=== PATIENT | female | born 1960 | race Caucasian/White ===

== ENCOUNTER → 2019-02-26 11:29 | Outpatient (CLI) | payer MEDICARE, SELFPAY ==
[2019-02-26 12:23] LABS: Hematocrit 40.1 % (36-46); Hemoglobin 13.8 g/dL (12.0-16.0); Mean Corpuscular HGB Conc 34.4 % (30-36); Mean Corpuscular Hemoglobin 30.4 PG (26-34); Mean Corpuscular Volume 88.3 fL (80-100); Platelet Count 276 X10^3/uL (150-400); Red Blood Cell Count 4.54 X10^6/uL (4.0-5.2); Red Cell Distribution Width 14.7 % (11.6-14.8); White Blood Cell Count 8.3 X10^3/uL (4.5-11.0)
[2019-02-26 13:41] LABS: BUN Creatinine Ratio 36.7 (6-22); Blood Urea Nitrogen 22 mg/dL (7-17); Calcium 10.5 mg/dL (8.4-10.2); Carbon Dioxide 31 mmol/L (22-32); Chloride 101 mmol/L (98-107); Estimated Glomerular Filt Rate > 60.0 mL/min (>60); Glucose 172 mg/dL (70-100); HEMOLYSIS < 15 (0-50); Sodium 140 mmol/L (137-145)
== END ==
PROVIDERS: PCP Family Medicine; Visit Provider Orthopaedic Surgery
DX: Z01.818 Encounter for other preprocedural examination (principal)
CPT/HCPCS: 36415; 80048; 85027; 93005; 93010

== ENCOUNTER 2019-03-15 08:46 | Day surgery (SDC) | payer MEDICARE, MEDICAID, SELFPAY ==
[2019-03-14 07:50] VITALS: BMI 31.0
[2019-03-15] VITALS (9 sets, daily range): BP systolic 149–176; BP diastolic 81–98; PULSE 63–91; RESP 15–26; TEMP 36–36.6; O2SAT 91–95; BMI 36.4
[2019-03-15] MEDS: LACTATED RINGERS 1,000 ML 42 ML IV (09:29)
[2019-03-15] MEDS: MIDAZOLAM 2 MG/2 ML VIAL IV (11:32)
[2019-03-15] MEDS: fentaNYL 100 MCG/2 ML INJ 50 MCG IV (11:32)
--- NOTE | 2019-03-15 11:34 | PM.PREOP ---
Pre-operative Note Interval Note History & Physical reviewed/Exam performed by Physician: Yes Changes to H&P: No
--- NOTE | 2019-03-15 11:34 | PM.OP.1 ---
Operative Date/Time/Diagnoses Date of procedure: 03/15/19 Time of procedure: 11:58 Pre-op diagnosis: left shoulder impingement, severe left shoulder AC OA Post-op diagnosis: same Procedure & Clinicians Procedure: left shoulder OSCAR, left shoulder open distal clavicle excision Same procedure as scheduled: Yes Surgeon: Luciana Fernandez Certified Physician Assistant: Crystal Balderas Anesthesia Type: General and Peripheral nerve block Operative Notes Closure Type: primary Specimen(s): none sent Estimated Blood Loss (mL): 50 Blood products transfused: none Procedure in detail: Patient was brought to the operating room and underwent induction of a general anesthesia. She had a preoperative left shoulder suprascapular nerve block placed for postoperative pain control. She was carefully positioned in the lateral decubitus position and the left upper extremity was prepped and draped in standard sterile fashion. Time-out was performed and antibiotics were given. The bony anatomy was meticulously defined and a posterior portal was placed. Diagnostic arthroscopy of the intra-articular surface showed partial thickness rotator cuff tear . The scope was then transferred into the subacromial space. The bursal surface of the subacromial space showed no significant tearing . A lateral portal was established and the coracoacromial ligament was released with cautery. There was severe degenerative changes in the AC joint and a substantial spur off of the medial border of the acromion as well as the distal end of the clavicle. A bur was used to remove the spur from the distal end of the acromium and the medial aspect of the acromion. She had severe spurring off of the distal clavicle. There was some moderate extravasation of fluid in I opted to do an open distal clavicle excision. Incision was made over the AC joint. Dissection was carried out to the capsule which was incised in stripped from the distal aspect of the clavicle in the medial aspect of the acromion. Next a 6 mm bur was used to resect the distal end of the clavicle and a small amount of the medial acromion. Patient was placed through a range of motion and was noted that there was no residual impingement of the AC joint. The AC joint stability was checked and it was noted that the AC joint was stable. The capsule was closed with interrupted Vicryl the skin was closed with interrupted Vicryl and Monocryl. The portals were closed with interrupted nylon and Steri-Strips. Marcaine was meticulously injected. The wound was covered sterilely with a 4x4s and an ABD. An ABD was also placed in the axilla. Patient tolerated procedure well transferred recovery room in satisfactory condition. Complications: none Post-operative Condition: stable Disposition: Acute Care Plan for aftercare: Work on hand wrist and elbow range of motion, short-term use of a sling, okay to progressively work left shoulder range of motion avoid strengthening or heavy lifting for 3-4 weeks postoperatively but okay to progress to full motion.
--- NOTE | 2019-03-15 11:46 | SUR.PREOP ---
Block start time [1132] . Monitoring initiated and maintained throughout procedure. Oxygen and medications given per anesthesiologist instructions. Patient remained stable throughout procedure, no adverse reactions noted. Block end time [1138].
[2019-03-15] MEDS: CEFAZOLIN 2 GM/100 ML FROZ.PIGGY IV (11:55)
--- NOTE | 2019-03-15 12:31 | SUR.OPER ---
Lateral on padded OR bed with melendez bag positioner, head on pillow, gel axillary roll in place, bottom leg bent with gel pad under knee to foot, upper leg straight and supported with pillows. Operative arm secured in shoulder positioning suspension device. non-operative arm secured on padded arm board. Safety belt at hip, tape over blanket securing lower legs.
[2019-03-15] MEDS: SODIUM CHLORIDE IRRIG SOLUTION 3,000 ML, EPINEPHrine 1 MG IRR (12:46)
[2019-03-15] MEDS: BUPIVACAINE 0.25% W/ EPI 30 ML VIAL INJ (13:29)
--- NOTE | 2019-03-15 14:21 | SUR.PHASEI ---
Anesthesia aware of pt blood glucose reading in PACU. No new orders received. Pt asymptomatic at this time.
[2019-03-15] MEDS: OXYCODONE IR 5 MG TABLET PO (15:03)
[2019-03-15] MEDS: hydrOXYzine 50 MG/ML INJ 25 MG IM (15:08)
--- NOTE | 2019-03-15 15:09 | SUR.PHASEII ---
PT UP TO BR TO VOID, PT MEDICATED FOR 7/10 PAIN, ARM REMAINS IN SLING, ABLE TO WIGGLE FINGERS AND THUMB FREELY, 2 + PALPABLE RADIAL PULSE. PT TOLERATING JUICE AND CRACKERS, DENIES ANY NAUSEA
[2019-03-15] MEDS: OXYCODONE/ACETAMINOPHEN 5/325 TABLET 1 TAB PO (15:22)
--- NOTE | 2019-03-15 15:22 | SUR.PHASEII ---
HAND OFF REPORT TO RODRIGO LUGO
== END 2019-03-15 16:08 | disposition home or self-care (01) ==
PROVIDERS: PCP Nurse Practitioner; Visit Provider Orthopaedic Surgery
PROC: (CPT 29805; principal; 2019-03-15 10:45)
DX: M19.012 Primary osteoarthritis, left shoulder (principal); M25.812 Other specified joint disorders, left shoulder; G89.18 Other acute postprocedural pain; M75.112 Incomplete rotator cuff tear or rupture of left shoulder, not specified as traumatic; E11.9 Type 2 diabetes mellitus without complications
CPT/HCPCS: 29824; 29826; 64415; J0171; J0690; J2250; J2405; J2704; J3010; J3410